=== PATIENT | female | born 1960 | race Asian ===

== ENCOUNTER 2025-06-01 06:10 | Day surgery (SDC) | payer OTHER, SELFPAY ==
[2025-06-01 07:30] VITALS: BMI 27.7
[2025-06-01 07:35] VITALS: BP 178/86
[2025-06-01 09:06] VITALS: BP 139/91
[2025-06-01 09:15] VITALS: BP 146/100
[2025-06-01 09:30] VITALS: BP 107/93
== END 2025-06-01 09:40 | disposition home or self-care (01) ==
LOC: GI 06:10
PROVIDERS: ATTENDING PHYSICIAN Internal Medicine Gastroenterology
DX: K31.89 Other diseases of stomach and duodenum (principal); K86.9 Disease of pancreas, unspecified; R93.2 Abnormal findings on diagnostic imaging of liver and biliary tract
CPT/HCPCS: 43237